=== PATIENT | female | born 1960 | race Two or more races ===

== ENCOUNTER 2023-03-20 05:22 | Emergency (ER) | payer SELFPAY ==
[2023-03-20] MEDS ORDERED: Diclofenac Sodium 1% Gel 100 GM Tube TOP ONE (06:10)
== END 2023-03-20 06:50 | disposition home or self-care (01) ==
LOC: JD.ED 05:22
DX: R07.89 Other chest pain (principal); M94.0 Chondrocostal junction syndrome [Tietze]
CPT/HCPCS: 99283; A9270; 99284